=== PATIENT | male | born 1945 | race Hispanic/Latino ===

== ENCOUNTER → 2019-03-25 | Outpatient (CLI) | payer OTHER, MEDICARE | END | disposition home or self-care (01) | LOC: RAH 12:32 | PROVIDERS: ATTEND Internal Medicine | DX: E11.40 Type 2 diabetes mellitus with diabetic neuropathy, unspecified (principal) | CPT/HCPCS: 93922 ==

== ENCOUNTER → 2019-11-18 | Outpatient (CLI) | payer OTHER, MEDICARE | END | disposition home or self-care (01) | LOC: RAH 10:04 | PROVIDERS: ATTEND Internal Medicine | DX: M79.662 Pain in left lower leg (principal) | CPT/HCPCS: 93971 ==

== ENCOUNTER 2020-01-15 18:05 | Observation (INO) | payer OTHER, MEDICARE ==
[~2020-01-15] VITALS: Ht 167.6 cm; Wt 75.8 kg
[2020-01-15 18:25] LABS: BASOPHILS % (AUTO) 0.5 % (0.0-5.0); HEMATOCRIT 35.7 % (42-54); LYMPHOCYTES % (AUTO) 27.6 % (21.0-51.0); MEAN CORPUSCULAR HGB CONC 35.6 g/dL (32.0-36.0); MEAN CORPUSCULAR VOLUME 84.4 fL (79-99); NEUTROPHILS % (AUTO) 59.7 % (40.0-77.0); PLATELET COUNT (AUTO) 248 K/uL (130-400); RED BLOOD CELL COUNT(AUTO) 4.23 MIL/uL (4.50-6.20); RED CELL DISTRIBUTION WIDTH 12.5 % (11.0-15.5)
[2020-01-15 18:36] LABS: CREATININE 1.5 mg/dL (0.5-1.5); POTASSIUM 3.6 mmol/L (3.5-5.1)
[2020-01-15] MEDS ORDERED: BUPIVACAINE/PF 0.5% 30ML VIAL ONE (18:38)
[2020-01-15 18:39] LABS: INR 0.96 (0.85-1.15); PARTIAL THROMBOPLASTIN TIME 24.5 SEC (26.3-35.5); PROTHROMBIN TIME 10.4 SEC (9.6-11.6)
[2020-01-15 18:41] LABS: ALBUMIN 3.5 g/dL (3.5-5.0); BILIRUBIN,TOTAL 0.3 mg/dL (0.2-1.0)
[2020-01-15] MEDS ORDERED: CEFAZOLIN SODIUM 1 GM VIAL ONE (18:51)
[2020-01-15 19:11] LABS: HEMOGLOBIN A1C 6.5 % (4.0-6.0)
[2020-01-15] MEDS ORDERED: MORPHINE SULFATE 2 MG/ML 1ML SYG IVP PRN ×2 (19:45)
[2020-01-15] MEDS ORDERED: ACETAMINOPHEN-CODEINE 300/30MG TAB PO PRN ×2 (19:45)
[2020-01-15] MEDS ORDERED: CEFAZOLIN SODIUM 1 GM VIAL IVP SCH (19:45)
[2020-01-15 21:25] VITALS: BP 182/82
[2020-01-16] VITALS (25 sets, daily range): BP systolic 113–186; BP diastolic 54–92
[2020-01-16] MEDS: CEFAZOLIN SODIUM 1 GM VIAL IVP SCH ×3 (02:54→18:28)
[2020-01-16] MEDS ORDERED: GLIP5TAB11 PO (07:01)
[2020-01-16] MEDS ORDERED: TAMS-1 PO (07:01)
[2020-01-16] MEDS ORDERED: ROSU5TAB12 PO (07:01)
[2020-01-16] MEDS ORDERED: OMEP40CA13 PO (07:01)
[2020-01-16] MEDS: PANTOPRAZOLE SODIUM 40 MG TABLET.DR PO SCH ×2 (07:08→10:36)
[2020-01-16] MEDS: GLIPIZIDE 5 MG TABLET PO SCH ×2 (08:00→18:28)
--- NOTE | 2020-01-16 12:20 | NUR ---
INITIAL SW spoke with patient's spouse. Patient lives with spouse. He has no home services. DME: glucometer (no insulin). Patient is able to complete ADL's independently and drives. PCP is Dr. Galeano. Pharmacy is [facility] located on [facility]. No safety concerns in regards to patient returning home. DCP is home. Addendum: 01/16/20 at 1222 by TANYA IRWIN SS Amended: Links added.
[2020-01-16] MEDS ORDERED: FENTANYL CITRATE PF 50 MCG/1 ML 2ML VIAL ONE (15:43)
[2020-01-16] MEDS ORDERED: LIDOCAINE PF 2% 5ML ABBOJECT ONE (15:43)
[2020-01-16] MEDS ORDERED: PROPOFOL 10 MG/ML 20ML VIAL IV ONE (15:43)
[2020-01-16] MEDS ORDERED: GLYCOPYRROLATE 1 MG/5 ML SYRINGE ONE (16:05)
[2020-01-16] MEDS ORDERED: CEFAZOLIN SODIUM 1 GM VIAL ONE (16:09)
[2020-01-16] MEDS ORDERED: MEPERIDINE-PF 25 MG/ML SYG ONE ×2 (16:47→16:57)
[2020-01-16] MEDS ORDERED: LABETALOL HCL 5 MG/ML 20ML VIAL IV ONE (16:57)
[2020-01-16] MEDS ORDERED: ONDANSETRON HCL 4 MG/2 ML VIAL ONE (17:16)
[2020-01-16] MEDS ORDERED: TAMSULOSIN HCL 0.4 MG CAP.ER.24H PO SCH (21:00)
[2020-01-16] MEDS ORDERED: ATORVASTATIN CALCIUM 10 MG TABLET PO SCH (21:00)
[2020-01-17] VITALS: BP 176/76
[2020-01-17] MEDS: CEFAZOLIN SODIUM 1 GM VIAL IVP SCH ×2 (02:31→09:46)
[2020-01-17 04:00] VITALS: BP 158/61
--- NOTE | 2020-01-17 06:09 | NUR ---
Left thumb surgical dressing has no bleeding during this shift. Dressing remained intact with sling in place. Patient medicated for pain x one at start of shift. Denied pain at this time. Following POC.
[2020-01-17 08:00] VITALS: BP 158/61
[2020-01-17] MEDS: PANTOPRAZOLE SODIUM 40 MG TABLET.DR PO SCH (09:46)
[2020-01-17] MEDS: GLIPIZIDE 5 MG TABLET PO SCH (09:46)
[2020-01-17 12:00] VITALS: BP 155/47
== END 2020-01-17 16:10 | disposition home or self-care (01) ==
LOC: EDH 18:05 → INTOOBSV 19:00 → EDHIP 19:00 → 3CH 20:57
PROVIDERS: ADMIT Internal Medicine; ATTEND Internal Medicine
DX: S62.522B Displaced fracture of distal phalanx of left thumb, initial encounter for open fracture (principal); Z20.828 Contact with and (suspected) exposure to other viral communicable diseases; S60.112A Contusion of left thumb with damage to nail, initial encounter; I12.9 Hypertensive chronic kidney disease with stage 1 through stage 4 chronic kidney disease, or unspecified chronic kidney disease; E78.5 Hyperlipidemia, unspecified; E11.22 Type 2 diabetes mellitus with diabetic chronic kidney disease; N18.2 Chronic kidney disease, stage 2 (mild); N40.0 Benign prostatic hyperplasia without lower urinary tract symptoms; K21.9 Gastro-esophageal reflux disease without esophagitis; W27.0XXA Contact with workbench tool, initial encounter; Y93.89 Activity, other specified; Y92.098 Other place in other non-institutional residence as the place of occurrence of the external cause; Y99.8 Other external cause status
CPT/HCPCS: 11760; 26765; 36415; 73140; 80053; 82948; 83036; 85025; 85610; 85730; 87426; 93005; 96374; 96375; 96376 ×2; 99285; A6223; G0168; G0378 ×6; J0690 ×7; J2001; J2175 ×2; J2405; J2704; J3010; J3490 ×3; J7030

== ENCOUNTER 2021-08-03 08:40 | Day surgery (SDC) | payer OTHER, MEDICARE ==
[2021-07-31 13:45] VITALS: BP 179/61
[2021-07-31 14:15] LABS: BASOPHILS % (AUTO) 0.4 % (0.0-5.0); EOSINOPHILS % (AUTO) 1.6 % (0.0-8.0); HEMATOCRIT 29.5 % (42-54); LYMPHOCYTES % (AUTO) 21.2 % (21.0-51.0); MEAN CORPUSCULAR HEMOGLOBIN 25.4 pg (27.0-33.0); MEAN CORPUSCULAR HGB CONC 31.2 g/dL (32.0-36.0); MEAN CORPUSCULAR VOLUME 81.5 fL (79-99); MONOCYTES % (AUTO) 7.7 % (3.0-13.0); NEUTROPHILS % (AUTO) 67.7 % (40.0-77.0); PLATELET COUNT (AUTO) 573 K/uL (130-400); RED BLOOD CELL COUNT(AUTO) 3.62 MIL/uL (4.50-6.20); RED CELL DISTRIBUTION WIDTH 13.4 % (11.0-15.5); WHITE BLOOD COUNT (AUTO) 9.3 K/uL (4.8-10.8)
[2021-07-31 14:17] LABS: APPEARANCE,URINE Clear (CLEAR); BILIRUBIN,URINE Negative (NEGATIVE); COLOR,URINE Yellow (YELLOW); GLUCOSE, URINE (UA) Negative (NEGATIVE); KETONES,URINE Negative (NEGATIVE); LEUKOCYTE ESTERASE ,URINE Negative (NEGATIVE); NITRATE,URINE Negative (NEGATIVE); OCCULT BLOOD,URINE Moderate (NEGATIVE); PROTEIN,URINE Negative (NEGATIVE); UROBILINOGEN,URINE 0.2 mg/dL (0.2-1.0)
[2021-07-31 14:33] LABS: CREATININE 1.4 mg/dL (0.5-1.5); POTASSIUM 4.3 mmol/L (3.5-5.1)
[2021-07-31 14:34] LABS: INR 1.1 (0.85-1.15); PROTHROMBIN TIME 11.9 SEC (9.6-11.6)
[2021-07-31 14:35] LABS: PARTIAL THROMBOPLASTIN TIME 31.6 SEC (26.3-35.5)
[2021-07-31 14:45] LABS: BACTERIA,URINE Rare /HPF (None Seen); SQUAMOUS EPITHELIAL CELL,UR Rare /HPF (0-2); WBC,URINE 0-1 /HPF (0-1)
[2021-08-03] VITALS (17 sets, daily range): BP systolic 137–190; BP diastolic 71–92
[~2021-08-03] VITALS: Ht 167.6 cm; Wt 69.0 kg
[~2021-08-03 08:40] MED LIST: BICA50TA7 PO; CEFTRIAXONE 1G VIAL IVP ONE; FINA5TAB41 PO; GENTAMICIN 80 MG/NS 100 ML PB 100 ML IV SCH; MULT-1367 PO; OMEP40CA21 PO; ROSU5TAB12 PO; TAMS-1 PO
[2021-08-03] MEDS ORDERED: CEFTRIAXONE 1G VIAL ONE (09:32)
[2021-08-03] MEDS ORDERED: 0.9%NACL 1000ML 1,000 ML IV ONE (12:04)
[2021-08-03] MEDS ORDERED: LIDOCAINE PF 100MG/5ML (2%) SYRINGE 5ML ONE (12:22)
[2021-08-03] MEDS ORDERED: MIDAZOLAM HCL 1 MG/ML 2ML VIAL ONE (12:22)
[2021-08-03] MEDS ORDERED: FENTANYL CITRATE PF 50 MCG/1 ML 2ML VIAL ONE ×2 (12:22→13:42)
[2021-08-03] MEDS ORDERED: SUCCINYLCHOLINE 200MG/10ML SYR ONE (12:22)
[2021-08-03] MEDS ORDERED: PROPOFOL 10 MG/ML 20ML VIAL IV ONE (12:22)
[2021-08-03] MEDS ORDERED: ROCURONIUM 10MG/1ML SYR 10 MG/ML ML ONE (12:22)
[2021-08-03] MEDS ORDERED: CEFAZOLIN SODIUM 1 GM VIAL IVP ONE (12:40)
[2021-08-03] MEDS ORDERED: IOHEXOL-350 50ML VIAL IV ONE (12:42)
[2021-08-03] MEDS ORDERED: EPHEDRINE SULFATE 50 MG/ML AMPULE ONE (12:54)
[2021-08-03] MEDS ORDERED: BUPIVACAINE/PF 0.25% 30ML VIAL IJ ONE (12:56)
[2021-08-03] MEDS ORDERED: GLYCOPYRROLATE 1 MG/5 ML SYRINGE ONE (13:31)
[2021-08-03] MEDS ORDERED: ESMOLOL HCL 10 MG/ML 10 ML VIAL ONE (13:42)
[2021-08-03] MEDS ORDERED: BACITRACIN 28.4 GM OINT TP ONE (14:04)
[2021-08-03] MEDS ORDERED: MEPERIDINE-PF 25 MG/ML SYG ONE ×2 (14:44→14:55)
[2021-08-03] MEDS ORDERED: LABETALOL 20MG SYG IV ONE (14:53)
[2021-08-03] MEDS ORDERED: TRAMADOL HCL 50 MG TABLET ONE (15:03)
== END 2021-08-03 16:10 | disposition home or self-care (01) ==
LOC: DAH 08:40
PROVIDERS: ATTEND Urology
DX: N13.30 Unspecified hydronephrosis (principal); L72.0 Epidermal cyst; C61 Malignant neoplasm of prostate; C79.51 Secondary malignant neoplasm of bone; I10 Essential (primary) hypertension; Z98.890 Other specified postprocedural states; Z79.01 Long term (current) use of anticoagulants; Z79.899 Other long term (current) drug therapy
CPT/HCPCS: 36415; 52332; 54520; 71045; 74420; 80048; 81001; 82948; 85025; 85610; 85730; 87088; 87635; 88305; 93005; A4222; A4223; A4355; A4663; A4930; A6260; C1758; C1769 ×2; C2617; C9803; J0330; J0690; J0696; J1580; J2001; J2175 ×2; J2250; J2704; J3010 ×2; J3490 ×4; J7030 ×2; Q9967

== ENCOUNTER 2021-08-04 21:00 | Emergency (ER) | payer OTHER, MEDICARE ==
[~2021-08-04] VITALS: Ht 162.6 cm; Wt 63.5 kg
[~2021-08-04 21:00] MED LIST changes: -CEFTRIAXONE 1G VIAL IVP ONE; -FINA5TAB41 PO; -GENTAMICIN 80 MG/NS 100 ML PB 100 ML IV SCH
[2021-08-04 21:24] LABS: BASOPHILS % (AUTO) 0.4 % (0.0-5.0); EOSINOPHILS % (AUTO) 1.1 % (0.0-8.0); HEMATOCRIT 30.9 % (42-54); LYMPHOCYTES % (AUTO) 15.2 % (21.0-51.0); MEAN CORPUSCULAR HEMOGLOBIN 25.9 pg (27.0-33.0); MEAN CORPUSCULAR VOLUME 78.4 fL (79-99); MONOCYTES % (AUTO) 8.2 % (3.0-13.0); NEUTROPHILS % (AUTO) 73.6 % (40.0-77.0); PLATELET COUNT (AUTO) 535 K/uL (130-400); RED BLOOD CELL COUNT(AUTO) 3.94 MIL/uL (4.50-6.20); RED CELL DISTRIBUTION WIDTH 13.6 % (11.0-15.5); WHITE BLOOD COUNT (AUTO) 13.9 K/uL (4.8-10.8)
[2021-08-04 21:39] LABS: APPEARANCE,URINE SL CLOUDY (CLEAR); BILIRUBIN,URINE NEGATIVE (NEGATIVE); COLOR,URINE YELLOW (YELLOW); GLUCOSE, URINE (UA) NEGATIVE (NEGATIVE); KETONES,URINE NEGATIVE (NEGATIVE); LEUKOCYTE ESTERASE ,URINE TRACE (NEGATIVE); NITRATE,URINE NEGATIVE (NEGATIVE); OCCULT BLOOD,URINE LARGE (NEGATIVE); PROTEIN,URINE 30 mg/dL (NEGATIVE); UROBILINOGEN,URINE 0.2 mg/dL (0.2-1.0)
[2021-08-04 21:40] LABS: ALBUMIN 3.1 g/dL (3.5-5.0); BILIRUBIN,TOTAL 0.4 mg/dL (0.2-1.0); CREATININE 1.6 mg/dL (0.5-1.5); POTASSIUM 3.7 mmol/L (3.5-5.1)
[2021-08-04 21:55] LABS: RBC,URINE 26-50 /HPF (0-1)
[2021-08-04 21:56] LABS: BACTERIA,URINE Few /HPF (None Seen)
[2021-08-04 21:57] LABS: SQUAMOUS EPITHELIAL CELL,UR Rare /HPF (0-2); YEAST,URINE BUDDING Few /HPF (None Seen)
[2021-08-04 22:28] VITALS: BP 164/78
[2021-08-04] MEDS ORDERED: FLUCONAZOLE 100 MG TAB PO ONE (22:30)
== END 2021-08-04 22:41 | disposition home or self-care (01) ==
LOC: EDH 21:00
DX: R33.9 Retention of urine, unspecified (principal); R31.9 Hematuria, unspecified; Z79.899 Other long term (current) drug therapy; Z98.890 Other specified postprocedural states
CPT/HCPCS: 36415; 51702; 80053; 81001; 85025

== ENCOUNTER 2021-12-07 07:08 | Day surgery (SDC) | payer OTHER, MEDICARE ==
[2021-12-01 11:29] LABS: BASOPHILS % (AUTO) 0.6 % (0.0-5.0); EOSINOPHILS % (AUTO) 3.9 % (0.0-8.0); HEMATOCRIT 26.4 % (42-54); LYMPHOCYTES % (AUTO) 26.8 % (21.0-51.0); MEAN CORPUSCULAR HEMOGLOBIN 28.1 pg (27.0-33.0); MEAN CORPUSCULAR VOLUME 85.2 fL (79-99); MONOCYTES % (AUTO) 9.1 % (3.0-13.0); NEUTROPHILS % (AUTO) 58.9 % (40.0-77.0); PLATELET COUNT (AUTO) 348 K/uL (130-400); RED CELL DISTRIBUTION WIDTH 15.9 % (11.0-15.5); WHITE BLOOD COUNT (AUTO) 6.7 K/uL (4.8-10.8)
[2021-12-01 11:43] LABS: CREATININE 1.6 mg/dL (0.5-1.5); POTASSIUM 3.8 mmol/L (3.5-5.1)
[2021-12-01 11:45] LABS: INR 1.03 (0.85-1.15); PROTHROMBIN TIME 11.2 SEC (9.6-11.6)
[2021-12-01 11:46] LABS: PARTIAL THROMBOPLASTIN TIME 30.2 SEC (26.3-35.5)
[2021-12-04 15:22] VITALS: BP 119/55
[~2021-12-07] VITALS: Ht 160 cm; Wt 64.9 kg
[2021-12-07] VITALS (13 sets, daily range): BP systolic 129–166; BP diastolic 49–71
[~2021-12-07 07:08] MED LIST changes: +ACET-2743 PO; +FOLI1TAB85 PO; +GLIP5TAB11 PO; -MULT-1367 PO; +TRAM-355 PO
[2021-12-07] MEDS ORDERED: 0.9%NACL 1000ML 1,000 ML IV ONE (07:19)
[2021-12-07] MEDS ORDERED: IOHEXOL-350 50ML VIAL IV ONE (07:48)
[2021-12-07] MEDS ORDERED: ONDANSETRON 4MG INJ ONE (07:56)
[2021-12-07] MEDS ORDERED: PROPOFOL 10 MG/ML 20ML VIAL IV ONE (07:56)
[2021-12-07] MEDS ORDERED: FENTANYL CITRATE PF 50 MCG/1 ML 2ML VIAL ONE (07:56)
[2021-12-07] MEDS ORDERED: ROCURONIUM 10MG/1ML SYR 10 MG/ML ML ONE (07:57)
[2021-12-07] MEDS ORDERED: CEFTRIAXONE 1G VIAL IVP ONE (08:00)
[2021-12-07] MEDS ORDERED: GENTAMICIN 80 MG/NS 100 ML PB 100 ML IV ONE (08:00)
[2021-12-07] MEDS ORDERED: GLYCOPYRROLATE 1 MG/5 ML SYRINGE ONE (09:29)
[2021-12-07] MEDS ORDERED: NEOSTIGMINE 5MG/5ML SYR IV ONE (09:29)
[2021-12-07] MEDS ORDERED: DEXAMETHASONE SOD PHOSPHATE 10MG/ML 1ML VIAL ONE (09:30)
[2021-12-07] MEDS ORDERED: SUCCINYLCHOLINE 200MG/10ML SYR ONE (09:31)
[2021-12-07] MEDS ORDERED: MORPHINE 4 MG SYG ONE (09:57)
== END 2021-12-07 11:40 | disposition home or self-care (01) ==
LOC: DAH 07:08
PROVIDERS: ATTEND Urology
DX: N13.1 Hydronephrosis with ureteral stricture, not elsewhere classified (principal); Q62.61 Deviation of ureter; I10 Essential (primary) hypertension; C61 Malignant neoplasm of prostate; Z79.01 Long term (current) use of anticoagulants; Z79.899 Other long term (current) drug therapy; Z79.84 Long term (current) use of oral hypoglycemic drugs; Z98.890 Other specified postprocedural states
CPT/HCPCS: 80048; 85025; 85610; 85730; 87426; 36415; 71045; 52332; 82948; 74420; A6260; C1769; C1758; C2617; J3010; J0330; J3490; J1100; J2710; J7030; J0696; J2704; J2405; J2270; J1580; Q9967; A4358; A4930; A4215; A4223; A4222; A4221; A4663; A4600

== ENCOUNTER 2021-12-30 04:09 | Emergency (ER) | payer OTHER, MEDICARE ==
[~2021-12-30] VITALS: Ht 167.6 cm; Wt 61.2 kg
[2021-12-30 04:49] LABS: BASOPHILS % (AUTO) 0.4 % (0.0-5.0); EOSINOPHILS % (AUTO) 1.6 % (0.0-8.0); HEMATOCRIT 23.8 % (42-54); MEAN CORPUSCULAR HEMOGLOBIN 27.4 pg (27.0-33.0); MEAN CORPUSCULAR HGB CONC 33.2 g/dL (32.0-36.0); MEAN CORPUSCULAR VOLUME 82.6 fL (79-99); MONOCYTES % (AUTO) 8.2 % (3.0-13.0); NEUTROPHILS % (AUTO) 65.1 % (40.0-77.0); PLATELET COUNT (AUTO) 342 K/uL (130-400); RED BLOOD CELL COUNT(AUTO) 2.88 MIL/uL (4.50-6.20); RED CELL DISTRIBUTION WIDTH 15.6 % (11.0-15.5); WHITE BLOOD COUNT (AUTO) 7.7 K/uL (4.8-10.8)
[2021-12-30 04:51] LABS: APPEARANCE,URINE CLEAR (CLEAR); BILIRUBIN,URINE NEGATIVE (NEGATIVE); COLOR,URINE YELLOW (YELLOW); GLUCOSE, URINE (UA) NEGATIVE (NEGATIVE); KETONES,URINE NEGATIVE (NEGATIVE); LEUKOCYTE ESTERASE ,URINE LARGE (NEGATIVE); NITRATE,URINE NEGATIVE (NEGATIVE); OCCULT BLOOD,URINE TRACE-INTACT (NEGATIVE); PROTEIN,URINE NEGATIVE (NEGATIVE); UROBILINOGEN,URINE 0.2 mg/dL (0.2-1.0)
[2021-12-30 04:55] LABS: CREATININE 1.5 mg/dL (0.5-1.5); POTASSIUM 3.6 mmol/L (3.5-5.1)
[2021-12-30 05:00] LABS: BACTERIA,URINE Many /HPF (None Seen); SQUAMOUS EPITHELIAL CELL,UR Moderate /HPF (0-2)
[2021-12-30] MEDS ORDERED: CEPH500B PO (05:12)
[2021-12-30 05:27] VITALS: BP 136/68
[2021-12-30] MEDS ORDERED: CEPHALEXIN 500 MG CAPSULE PO ONE (05:30)
== END 2021-12-30 05:28 | disposition home or self-care (01) ==
LOC: EDH 04:09
DX: R33.9 Retention of urine, unspecified (principal); N39.0 Urinary tract infection, site not specified; C61 Malignant neoplasm of prostate; E78.00 Pure hypercholesterolemia, unspecified; E11.9 Type 2 diabetes mellitus without complications; Z79.84 Long term (current) use of oral hypoglycemic drugs; Z79.899 Other long term (current) drug therapy
CPT/HCPCS: 36415; 51702; 80048; 81001; 85025; 87077; 87088; 87186

== ENCOUNTER 2022-03-22 06:21 | Day surgery (SDC) | payer OTHER, MEDICARE ==
[2022-03-19 14:53] LABS: BASOPHILS % (AUTO) 0.5 % (0.0-5.0); EOSINOPHILS % (AUTO) 2.1 % (0.0-8.0); HEMATOCRIT 24.5 % (42-54); LYMPHOCYTES % (AUTO) 31.1 % (21.0-51.0); MEAN CORPUSCULAR HEMOGLOBIN 27.1 pg (27.0-33.0); MEAN CORPUSCULAR VOLUME 87.5 fL (79-99); MONOCYTES % (AUTO) 8.1 % (3.0-13.0); NUCLEATED RED BLOOD CELLS 0.8 % (0.0-0.19); PLATELET COUNT (AUTO) 200 K/uL (130-400); RED CELL DISTRIBUTION WIDTH 20.2 % (11.0-15.5); WHITE BLOOD COUNT (AUTO) 7.7 K/uL (4.8-10.8)
[2022-03-19 14:55] LABS: APPEARANCE,URINE CLOUDY (CLEAR); BILIRUBIN,URINE NEGATIVE (NEGATIVE); COLOR,URINE YELLOW (YELLOW); GLUCOSE, URINE (UA) NEGATIVE (NEGATIVE); KETONES,URINE NEGATIVE (NEGATIVE); LEUKOCYTE ESTERASE ,URINE 500 Leu/uL (NEGATIVE); NITRATE,URINE NEGATIVE (NEGATIVE); OCCULT BLOOD,URINE LARGE (NEGATIVE); PH,URINE 5.5 (5.0-8.0); PROTEIN,URINE 30 mg/dL (NEGATIVE); UROBILINOGEN,URINE 0.2 mg/dL (0.2-1.0)
[2022-03-19 15:02] LABS: CREATININE 1.1 mg/dL (0.5-1.5)
[2022-03-19 15:22] LABS: BACTERIA,URINE MOD /HPF (None Seen); MUCUS,URINE RARE LPF (None Seen); RBC,URINE 26-50 /HPF (0-1); SQUAMOUS EPITHELIAL CELL,UR RARE /HPF (0-2); WBC,URINE >100 /HPF (0-1)
[2022-03-20] MEDS: CEFTRIAXONE 1G VIAL IVPB SCH (09:30)
[2022-03-21 10:22] VITALS: BP 133/53
[2022-03-22] VITALS (19 sets, daily range): BP systolic 87–162; BP diastolic 37–88
[~2022-03-22] VITALS: Ht 167.6 cm; Wt 59.0 kg
[~2022-03-22 06:21] MED LIST changes: +ENZA40CA PO; +FENTANYL CITRATE PF 50 MCG/1 ML 5ML AMP IV ONE; +KETO10TA2 PO; +LEVO-70 PO; -TRAM-355 PO
[2022-03-22] MEDS ORDERED: FENTANYL CITRATE PF 50 MCG/1 ML 5ML AMP IV ONE (06:43)
[2022-03-22] MEDS ORDERED: 0.9%NACL 1000ML 1,000 ML IV ONE (06:43)
[2022-03-22] MEDS ORDERED: IOHEXOL-350 50ML VIAL IV ONE (07:51)
[2022-03-22] MEDS ORDERED: ONDANSETRON 4MG INJ ONE (08:30)
[2022-03-22] MEDS ORDERED: ROCURONIUM 10MG/1ML SYR 10 MG/ML ML ONE (08:30)
[2022-03-22] MEDS ORDERED: DEXAMETHASONE SOD PHOSPHATE 10MG/ML 1ML VIAL ONE (08:30)
[2022-03-22] MEDS ORDERED: PROPOFOL 10 MG/ML 20ML VIAL IV ONE (08:30)
[2022-03-22] MEDS ORDERED: MIDAZOLAM HCL 1 MG/ML 2ML VIAL ONE (08:30)
[2022-03-22] MEDS ORDERED: GLYCOPYRROLATE 1 MG/5 ML SYRINGE ONE (08:30)
[2022-03-22] MEDS ORDERED: LIDOCAINE PF 100MG/5ML (2%) SYRINGE 5ML ONE (08:30)
[2022-03-22] MEDS ORDERED: SUCCINYLCHOLINE 200MG/10ML SYR ONE (08:30)
[2022-03-22] MEDS ORDERED: NEOSTIGMINE 5MG/5ML SYR IV ONE (08:30)
[2022-03-22] MEDS ORDERED: KETOROLAC 30MG VIAL (30MG/ML) ONE (08:32)
[2022-03-22] MEDS: CEFTRIAXONE 1G VIAL IVPB SCH (09:01)
[2022-03-22] MEDS ORDERED: MEPERIDINE-PF 25 MG/ML SYG ONE (09:11)
[2022-03-22] MEDS ORDERED: MORPHINE 4 MG SYG ONE (09:52)
== END 2022-03-22 11:30 | disposition home or self-care (01) ==
LOC: DAH 06:21
PROVIDERS: ATTEND Urology
DX: N13.5 Crossing vessel and stricture of ureter without hydronephrosis (principal); Z20.822 Contact with and (suspected) exposure to COVID-19; C61 Malignant neoplasm of prostate; C79.51 Secondary malignant neoplasm of bone; K21.9 Gastro-esophageal reflux disease without esophagitis; E11.9 Type 2 diabetes mellitus without complications; I10 Essential (primary) hypertension; D64.9 Anemia, unspecified; Z98.890 Other specified postprocedural states; Z90.49 Acquired absence of other specified parts of digestive tract; Z79.01 Long term (current) use of anticoagulants; Z79.899 Other long term (current) drug therapy
CPT/HCPCS: 80048; 85025; 87088; 87426; 81001; 36415; 87077; 87186; 52332; 82948 ×2; 74018; A6260; J3010 ×2; A4663; C1758; C1769; C2617; J0330; J3490; J1100; J2710; J7030; J2001; J0696; J2250; J2704; J2405; J2270; J1885; J2175; A4358; A4215; A4223; A4222; A4221; A4600; Q9967

== ENCOUNTER 2022-06-22 12:35 | Emergency (ER) | payer OTHER, MEDICARE ==
[~2022-06-22] VITALS: Ht 167.6 cm; Wt 56.2 kg
[~2022-06-22 12:35] MED LIST changes: -FENTANYL CITRATE PF 50 MCG/1 ML 5ML AMP IV ONE
[2022-06-22 13:14] LABS: BASOPHILS % (AUTO) 0.3 % (0.0-5.0); EOSINOPHILS % (AUTO) 1.2 % (0.0-8.0); HEMATOCRIT 27.3 % (42-54); LYMPHOCYTES % (AUTO) 18.9 % (21.0-51.0); MEAN CORPUSCULAR HEMOGLOBIN 28.6 pg (27.0-33.0); MEAN CORPUSCULAR HGB CONC 32.6 g/dL (32.0-36.0); MEAN CORPUSCULAR VOLUME 87.8 fL (79-99); MONOCYTES % (AUTO) 10.1 % (3.0-13.0); NEUTROPHILS % (AUTO) 67.9 % (40.0-77.0); PLATELET COUNT (AUTO) 241 K/uL (130-400); RED BLOOD CELL COUNT(AUTO) 3.11 MIL/uL (4.50-6.20); RED CELL DISTRIBUTION WIDTH 17.3 % (11.0-15.5); WHITE BLOOD COUNT (AUTO) 5.8 K/uL (4.8-10.8)
[2022-06-22 13:26] LABS: INR 0.99 (0.85-1.15); PROTHROMBIN TIME 10.8 SEC (9.6-11.6)
[2022-06-22 13:27] LABS: PARTIAL THROMBOPLASTIN TIME 35.4 SEC (26.3-35.5)
[2022-06-22 13:35] LABS: CREATININE 1.1 mg/dL (0.5-1.5); POTASSIUM 3.4 mmol/L (3.5-5.1)
[2022-06-22 13:39] LABS: ALBUMIN 2.5 g/dL (3.5-5.0); TOTAL PROTEIN, SERUM 6.9 g/dL (6.0-8.3)
[2022-06-22 14:00] LABS: B-TYPE NATRIURETIC PEPTIDE 88 pg/mL (0-100)
[2022-06-22 14:44] LABS: APPEARANCE,URINE CLOUDY (CLEAR); BILIRUBIN,URINE NEGATIVE (NEGATIVE); COLOR,URINE LIGHT-YELLOW (YELLOW); GLUCOSE, URINE (UA) NEGATIVE (NEGATIVE); KETONES,URINE NEGATIVE (NEGATIVE); LEUKOCYTE ESTERASE ,URINE 500 Leu/uL (NEGATIVE); NITRATE,URINE NEGATIVE (NEGATIVE); OCCULT BLOOD,URINE MODERATE (NEGATIVE); PROTEIN,URINE NEGATIVE (NEGATIVE); UROBILINOGEN,URINE 0.2 mg/dL (0.2-1.0)
[2022-06-22 15:09] LABS: BACTERIA,URINE RARE /HPF (None Seen); MUCUS,URINE RARE LPF (None Seen); OTHER CASTS, URINE 1 /LPF (None Seen); SQUAMOUS EPITHELIAL CELL,UR RARE /HPF (0-2); WBC,URINE TNTC /HPF (0-1)
[2022-06-22] MEDS ORDERED: IOHEXOL 350 MG/ML 100ML INFUS..BTL IV ONE (16:55)
[2022-06-22] MEDS ORDERED: CEFTRIAXONE 1G VIAL IVP ONE (18:30)
[2022-06-22] MEDS ORDERED: LEVO-70 PO (18:44)
[2022-06-22 19:16] VITALS: BP 146/51
[2022-06-26] MEDS ORDERED: PRED5TAB PO (12:23)
[2022-06-26] MEDS ORDERED: TRAM-355 PO (12:24)
== END 2022-06-22 19:25 | disposition home or self-care (01) ==
LOC: EDH 12:35
DX: N30.00 Acute cystitis without hematuria (principal); R07.89 Other chest pain; C79.51 Secondary malignant neoplasm of bone; M54.2 Cervicalgia; D64.9 Anemia, unspecified; E11.9 Type 2 diabetes mellitus without complications; M19.90 Unspecified osteoarthritis, unspecified site; Z20.822 Contact with and (suspected) exposure to COVID-19; Z90.49 Acquired absence of other specified parts of digestive tract; Z79.899 Other long term (current) drug therapy; Z98.890 Other specified postprocedural states; Z85.46 Personal history of malignant neoplasm of prostate
CPT/HCPCS: 99285; 96374; 71270; 71045; 87635; 84484 ×2; 80053; 83880; 85025; 85610; 85730; 87077; 87088; 87186; 83605; 81001; 36415; 93005 ×2; C9803; J0696; Q9967

== ENCOUNTER → 2022-10-05 | Outpatient (CLI) | payer OTHER, MEDICARE ==
[~2022-10-05] VITALS: Ht 163.8 cm; Wt 52.1 kg
[~2022-10-05] MED LIST changes: -BICA50TA7 PO; +DEXA4 PO; +DOCU100T PO; -KETO10TA2 PO; +PRED5TAB PO; +TRAM-355 PO
[2022-10-05 12:37] VITALS: BP 132/60
[2022-10-05 12:42] LABS: BASOPHILS % (AUTO) 0.1 % (0.0-5.0); EOSINOPHILS % (AUTO) 0.1 % (0.0-8.0); HEMATOCRIT 26.8 % (42-54); LYMPHOCYTES % (AUTO) 16.1 % (21.0-51.0); MEAN CORPUSCULAR HGB CONC 33.2 g/dL (32.0-36.0); MEAN CORPUSCULAR VOLUME 102.3 fL (79-99); MONOCYTES % (AUTO) 14.7 % (3.0-13.0); NUCLEATED RED BLOOD CELLS 0.3 % (0.0-0.19); PLATELET COUNT (AUTO) 163 K/uL (130-400); RED BLOOD CELL COUNT(AUTO) 2.62 MIL/uL (4.50-6.20); RED CELL DISTRIBUTION WIDTH 19.8 % (11.0-15.5); WHITE BLOOD COUNT (AUTO) 7.5 K/uL (4.8-10.8)
[2022-10-05 13:02] LABS: APPEARANCE,URINE CLOUDY (CLEAR); BILIRUBIN,URINE NEGATIVE (NEGATIVE); COLOR,URINE YELLOW (YELLOW); GLUCOSE, URINE (UA) NEGATIVE (NEGATIVE); KETONES,URINE 20 mg/dL (NEGATIVE); LEUKOCYTE ESTERASE ,URINE 500 Leu/uL (NEGATIVE); NITRATE,URINE NEGATIVE (NEGATIVE); OCCULT BLOOD,URINE LARGE (NEGATIVE); PROTEIN,URINE 70 mg/dL (NEGATIVE)
[2022-10-05 13:03] LABS: CREATININE 1.2 mg/dL (0.5-1.5); POTASSIUM 3.5 mmol/L (3.5-5.1)
[2022-10-05 13:30] LABS: BACTERIA,URINE MOD /HPF (None Seen); MUCUS,URINE RARE LPF (None Seen); RBC,URINE 51-100 /HPF (0-1); SQUAMOUS EPITHELIAL CELL,UR RARE /HPF (0-2); WBC,URINE TNTC /HPF (0-1)
== END | disposition home or self-care (01) ==
LOC: DAH 10:00 → EDSTATUS 10:00
PROVIDERS: ATTEND Urology
DX: Z01.818 Encounter for other preprocedural examination (principal); Z20.822 Contact with and (suspected) exposure to COVID-19; C61 Malignant neoplasm of prostate; Z79.01 Long term (current) use of anticoagulants; Z79.899 Other long term (current) drug therapy
CPT/HCPCS: 36415; 80048; 81001; 85025; 87077; 87088; 87186; 87426; 93005